=== PATIENT | female | born 1990 | race Caucasian/White ===

== ENCOUNTER 2019-12-13 00:25 | Outpatient (CLI) | payer OTHER, SELFPAY | END 2019-12-13 00:26 | disposition home or self-care (01) | LOC: ANHCOVIDDT 00:25 | PROVIDERS: Visit Provider Surgery Plastic and Reconstructive Surgery | DX: Z01.818 Encounter for other preprocedural examination (principal); Z11.59 Encounter for screening for other viral diseases | CPT/HCPCS: 87635; C9803; U0003 ==

== ENCOUNTER 2019-12-16 00:43 | Day surgery (SDC) | payer OTHER, SELFPAY ==
[2019-12-10 09:37] VITALS: BMI 22.9
[2019-12-16] VITALS (13 sets, daily range): BP systolic 111–137; BP diastolic 64–80; PULSE 60–91; RESP 12–20; TEMP 36.7–37.3; O2SAT 97–100
[2019-12-16] MEDS: LACTATED RINGERS 1,000 ML 30 ML IV CONT ×2 (09:05→13:49)
[2019-12-16 09:24] LABS: Urine Cotinine NEGATIVE
--- NOTE | 2019-12-16 09:47 | WPDANESEPPF ---
Anes - Initial Pre Proc Eval Procedure: Operation Date: 12/16/19 10:30 Proposed Procedures p Abdominoplasty - Carlo Elizondo MD Date/Time: 12/16/19 09:47 Surgeon: Carlo Elizondo MD Pre Op Diagnosis: Skin Laxity Patient Data Age: 29 Gender: F Height: 5 ft 2 in Weight: 58 kg Last Vital Signs Temp 37.3 C 12/16/19 09:00 Pulse 85 12/16/19 09:00 Resp 15 12/16/19 09:00 BP 118/74 12/16/19 09:00 Pulse Ox 100 12/16/19 09:00 Allergies Allergy/AdvReac Type Severity Reaction Status Date / Time adhesive Allergy Mild RASH Verified 12/16/19 09:27 latex Allergy Mild Rash Verified 12/16/19 09:27 Home Medications Medication Instructions Recorded Confirmed Type No Home Medications 12/10/19 12/10/19 History Laboratory Tests 12/16/19 09:10 Cotinine Negative Patient hx anesthesia problems: none Family hx anesthesia problems: none [facility] History Surgical History (Updated 12/16/19 @ 09:47 by Ken Terry MD) Hx of breast reduction, elective Social History Social History Gender identity (if verbalized by the patient): Female Anes - Eval Final PreProcedure Day of Procedure 12/16/19 09:47 Patient weight: normal Heart: regular rate and rhythm Lungs: clear to auscultation Airway: Mallampati scale class II Neurological: alert and oriented Last oral intake: >/= 8 hours ASA classification: I Emergent: no Anesthetic plan: proceed Anesthesia type and monitoring: general ETT and standard monitoring Informed Consent: The patient's anesthetic plan and its attendant risks and benefits were discussed with the patient/family/POA. Questions were solicited and answers provided to the satisfaction of the patient/family/POA.
--- NOTE | 2019-12-16 10:29 | WPDHPUPDATE1 ---
History and Physical Update Update Date/Time: 12/16/19 10:29 History and Physical has been reviewed, including an updated exam of the patient. There are NO changes in the patient's condition. Risks, benefits, and alternatives have been discussed and questions answered. Patient agrees to proceed with procedure.
--- NOTE | 2019-12-16 10:45 | PM.PROC ---
Procedure Note - Detailed Date of procedure: 12/16/19 Pre-op diagnosis: Skin Laxity Post-op diagnosis: same Procedure performed: Progressive tension abdominoplasty Description of procedure: She is here today for abdominoplasty. Previously and again today the risks, benefits, alternatives were discussed in extensive detail. I wanted her to be very realistic about the risks involved as well as expectations. We discussed aftercare and what to monitor for. I was very upfront about the risks of wound breakdown leading to loss of skin, open wounds, and need for additional procedures with permanent abdominal deformity. We discussed DVT/PE risks and management. Made sure answered all of her questions to her satisfaction today and consent was obtained. She was marked in the preoperative holding area with their verification. The patient was taken to the operating room placed supine on the operating table. Anesthesia was provided by anesthesiology. A reyes catheter was started. She was prepped and draped in a standard sterile fashion. A surgical time-out was taken. I placed the patient in a flexed position to verify the upper and lower markings would reach. I then placed her supine. A thorough abdominal examination was completed. Stab incisions were made and used tumescent solution. A 10 blade was used to make the upper incision. I continued dissection down to the level of fascia. Elevated just what was necessary for repair of the diastasis and discontinuous undermining otherwise. I then again flexed the bed to verify the upper skin flap would reach the lower markings without tension. Once verified I placed her supine once again and a 10 blade used to make the lower incision. I elevated up to level the umbilicus and left the umbilicus intact on a well-vascularized stalk. The intervening tissue was removed. A 2 mm blunt cannula and Exparel which was mixed 20 cc in 100 cc for a total volume of 120 cc I injected deep to the fascia bilaterally as well as along the incision lines. I plicated the diastasis recti using 0 PDO stratafix barbed suture. This was in 2 separate layers using 2 separate sutures as well. I repaired around the umbilicus leaving plenty of room for well-vascularized stalk of the umbilicus with 2-0 PDS. The patient was flexed and starting from superior to inferior began plication using 2-0 Vicryl to obliterate all space in a standard progressive tension fashion. At the umbilicus I marked out the location of the skin and inset this with 3-0 Monocryl and 4-0 nylon. I continued the remainder of the plication using 2-0 Vicryl until I reached my lower planned scar line. I trimmed any excess skin of the upper flap making sure this was a tension-free closure. I then approximated using a 3 point suture with 2-0 Vicryl followed by 3-0 stratafix ,running subcuticular 4-0 Monocryl, and tissue glue. Fluffs and an abdominal binder were placed. The patient was transferred to the bed in a flexed position. Awoken and taken to the PACU without difficulty. All instrument and sponge counts were correct at the end of the case. Anesthesia: GLMA Surgeon: Carlo Elizondo MD Estimated blood loss (mL): 40 Drains: No Packing: No Pathology: none sent Complications: No immediate complications Condition: stable Disposition: PACU Findings: Tissue weight: 1191.6 grams
[2019-12-16] MEDS: ceFAZolin 2 GM/D5W 50 ML 2 GM/50 ML BAG IVPB (11:23)
--- NOTE | 2019-12-16 15:07 | PC.NURSE ---
This patient, Vita Wilks, was received from OR recovery per bed to room 289. Patient oriented to unit policies and routines
[2019-12-16] MEDS: MORPHINE SULFATE 2 MG/ML INJ IV PUSH ×3 (15:12→21:37)
[2019-12-16] MEDS: carisoprodoL 350 MG TABLET PO ×2 (18:00→23:48)
[2019-12-16] MEDS: ONDANSETRON INJ 4 MG/2 ML VIAL IV PUSH (19:26)
[2019-12-16] MEDS: ENOXAPARIN 40 MG/0.4 ML SYRINGE SUB-Q (21:36)
[2019-12-16] MEDS: DOCUSATE SODIUM 100 MG CAPSULE PO (21:37)
[2019-12-17] MEDS: carisoprodoL 350 MG TABLET PO ×2 (05:45→12:24)
[2019-12-17 05:50] VITALS: BP 101/63; PULSE 86; RESP 12; TEMP 37.1; O2SAT 98
--- NOTE | 2019-12-17 06:28 | WPDPN ---
Progress Note: A&P Assessment and Plan (1) Skin laxity: Code(s): L57.4 - Cutis laxa senilis Status: Acute Assessment and Plan: Pain continues to improve. Will plan for discharge later when: Tolerating p.o. Ambulating Pain controlled Today we discussed the care after discharge. This was a lengthy open-ended conversation making sure she was well aware of what monitor for. She understands we are available with any questions or concerns. I will see her back in a week. Continue abdominal binder we may need to switch this out to lose her binder. She also may shower prior to discharge if possible. No pools or tubs. (2) IBS (irritable bowel syndrome): Code(s): K58.9 - Irritable bowel syndrome without diarrhea Status: Acute Exam Const: General: no acute distress Eyes: General: appearance normal, both eyes and all related structures Resp: Effort & Inspection: normal respiratory effort Auscultation: no wheezes Cardio: Rate: regular rate GI: Other: Abdomen soft. No signs of infection. No hematoma. No seroma. Good color and capillary refill. Extrem: Other: No calf tenderness. Negative Homans. Objective Data Vital Signs Vital Signs: Vital Signs - 24 hr 12/16/19 09:00 12/16/19 13:49 12/16/19 14:00 Temperature 37.3 C 36.9 C Pulse Rate 85 90 60 Respiratory Rate 15 17 14 Blood Pressure 118/74 137/65 113/64 Pulse Oximetry 100 100 100 12/16/19 14:15 12/16/19 14:30 12/16/19 14:45 Temperature Pulse Rate 90 62 71 Respiratory Rate 12 12 12 Blood Pressure 122/73 132/79 115/75 Pulse Oximetry 100 100 99 12/16/19 15:15 12/16/19 15:30 12/16/19 16:00 Temperature 37.3 C Pulse Rate 65 67 64 Respiratory Rate 16 Blood Pressure 122/80 115/78 116/75 Pulse Oximetry 100 100 100 12/16/19 16:30 12/16/19 17:00 12/16/19 19:04 Temperature 36.7 C Pulse Rate 68 76 91 Respiratory Rate 16 20 Blood Pressure 115/77 111/66 122/76 Pulse Oximetry 99 99 97 12/16/19 23:49 12/17/19 05:50 Temperature 36.9 C 37.1 C Pulse Rate 65 86 Respiratory Rate 16 12 Blood Pressure 116/75 101/63 Pulse Oximetry 100 98 Intake/Output Intake/Output: Intake & Output 12/14/19 12/15/19 12/16/19 12/17/19 23:59 23:59 23:59 23:59 Intake Total 150 Output Total 205 Balance -55 Meds/Results Medications: Active Medications Generic Name Dose Route Start Last Admin Trade Name Freq PRN Reason Stop Dose Admin Carisoprodol 350 mg 12/16/19 18:00 12/17/19 05:45 Soma PO 350 mg Q6HR LESLIE Administration Diphenhydramine HCl 25 mg 12/16/19 23:12 12/16/19 23:48 Benadryl Cap PO 25 mg Q6H PRN Administration Itching Docusate Sodium 100 mg 12/16/19 21:00 12/16/19 21:37 Colace Capsule PO 100 mg Q12HR LESLIE Administration Enoxaparin Sodium 40 mg 12/16/19 21:00 12/16/19 21:36 Lovenox SUB-Q 40 mg DAILY LESLIE Administration Morphine Sulfate 2 mg 12/16/19 13:54 12/16/19 21:37 Morphine Sulfate Inj IV PUSH 2 mg Q2H PRN Administration Pain Ondansetron HCl 4 mg 12/16/19 13:54 12/16/19 19:26 Zofran Inj IV PUSH 4 mg Q6H PRN Administration Nausea Oxycodone/Acetaminophen 1 - 2 tablet 12/16/19 17:30 12/17/19 03:35 Percocet 5-325 Mg PO 2 tablet Q4H PRN Administration Pain Labs Labs: Laboratory Results - last 24 hr 12/16/19 09:10 Cotinine Negative
--- NOTE | 2019-12-17 06:33 | PM.DS ---
DS: Admitting Diagnosis Admitting Diagnosis Admitting Diagnosis: Skin laxity DS: Discharge Diagnosis Discharge Diagnosis (1) Skin laxity: Code(s): L57.4 - Cutis laxa senilis Status: Acute DS: Summary Time Spent with Patient Time attestation: Total time spent providing and/or coordinating discharge services: 20 minutes Exam Const: General: no acute distress Eyes: General: appearance normal, both eyes and all related structures Resp: Effort & Inspection: normal respiratory effort Auscultation: no wheezes Cardio: Rate: regular rate GI: Other: Abdomen soft. No signs of infection. No hematoma. No seroma. Good color and capillary refill. Extrem: Other: No calf tenderness. Negative Homans. DS: Data Data Completed and Pending Labs on day of discharge: Labs from last 24 hours 12/16/19 09:10 Cotinine Negative Discharge Plan Discharge Patient Disposition: Home, Self-Care Discharge Instructions: POST OPERATIVE DISCHARGE INSTRUCTIONS FOR CARLO ELIZONDO M.D. [facility] [facility] [address] [place] [address] [address] for 24 hours after anesthesia and while you are taking pain medication. Take all prescribed medication as directed Diet as tolerated. No lifting or activity that raises blood pressure for 48 hours. Regular walking / ambulation. No showering until directed to. Once you shower do not take pain medication before showering as the combination of medication and heat may cause you to feel dizzy or pass out. No pools or tubs for 2 weeks. Call with any questions or concerns. Keep flexed at the waist. Slowly stand up straight over the week as tolerated. No straining / lifting more than 20 pounds Abdominal compression 23 hours per day. Dressing Care: May shower. If you have any questions or concerns, please call the office . If it is after hours you will be directed to the [facility]. Shortness of breath, chest pain, or other medical emergency dial 911 / proceed to the Emergency Room. Follow-up/Referrals: Carlo Elizondo MD [Physician] - 1 Week Discharge Medications: New carisoprodol 350 mg Tablet 350 mg PO Q6HR Qty: 28 RF: 0 oxycodone-acetaminophen 5-325 mg Tablet 1 - 2 tablet PO Q4H PRN (Reason: Pain) Qty: 15 RF: 0 docusate sodium 100 mg Capsule 100 mg PO Q12HR Qty: 28 RF: 0 No Action No Home Medications RF: 0
[2019-12-17] MEDS: DOCUSATE SODIUM 100 MG CAPSULE PO (08:13)
[2019-12-17] MEDS: ENOXAPARIN 40 MG/0.4 ML SYRINGE SUB-Q (08:13)
[2019-12-17 08:15] VITALS: BP 114/71; PULSE 84; RESP 18; TEMP 37.3; O2SAT 100
--- NOTE | 2019-12-17 09:04 | WPDANESPN ---
Anes - Prog Note Post-Op Date/Time: 12/17/19 09:04 Cardiovascular status: normal Respiratory status: normal Airway patency: baseline Mental status: baseline Post-Op hydration status: normal Vital Signs: Last Vital Signs Temp 37.1 C 12/17/19 05:50 Pulse 86 12/17/19 05:50 Resp 12 12/17/19 05:50 BP 101/63 12/17/19 05:50 Pulse Ox 98 12/17/19 05:50 I/O: Intake & Output 12/16/19 12/17/19 12/17/19 23:59 07:59 15:59 Output Total 125 Balance -125 12/16/19 09:10 Cotinine Negative Post-procedural complaints: none Patient Feedback: Patient satisfied with anesthetic care.
== END 2019-12-17 17:00 | disposition home or self-care (01) ==
LOC: ANHSURGERY 10:47 → ANHOB2 15:02
PROVIDERS: Visit Provider Surgery Plastic and Reconstructive Surgery
PROC: (CPT 15830; principal; 2019-12-16 10:30)
DX: Z41.1 Encounter for cosmetic surgery (principal); L57.4 Cutis laxa senilis; K58.9 Irritable bowel syndrome, unspecified
CPT/HCPCS: 15830; 15847; 36415; 80307; 99199; A9270; C9290; J0131; J0171; J0690; J1170; J1200; J1650; J2250; J2270; J2405; J3010; J7120

== ENCOUNTER 2020-01-09 12:14 | Outpatient (NON) | payer OTHER, SELFPAY | END 2020-01-09 12:15 | PROVIDERS: Visit Provider Surgery Plastic and Reconstructive Surgery | DX: T81.40XA Infection following a procedure, unspecified, initial encounter (principal) | CPT/HCPCS: 87070; 87075; 87147; 87186; 87205 ==